=== PATIENT | male | born 1950 | race Caucasian/White ===

== ENCOUNTER → 2022-07-25 11:01 | Outpatient (REF) | payer OTHER, SELFPAY ==
--- NOTE | 2022-07-25 11:08 | CA_ITS ---
Transthoracic Echocardiogram Patient (Last, First, Middle): Jerson Quinn, Gender: Male Date of : 1950 Age: 71 Procedure Date: 07/25/2022 Procedure Type: Transthoracic Echocardiogram Location: [place] Height: 185.42 cm Weight: 101.15 kg BSA: 2.25 m2 Heart Rate: 63 bpm BP: 125 / 70 mmHg Croze Cutter Helper: KAITLYNN Referring MD: Antonette Hewitt [facility] Manager Transport: Zana Cervantes MD Symptoms: TRANSIENT CEREBRAL ISCHEMIA Study Quality: Adequate ECG Rhythm: Sinus Conclusions: - 1. Low normal LV systolic function with LVEF of 50-55% 2. Normal cardiac valvular Dopplers 3. Moderately dilated ascending aorta at 4.5 cm 4. Normal RV systolic pressure 5. No gross pericardial effusion Findings Left Ventricle Normal left ventricular cavity size. The left ventricular systolic function is low normal. The visually estimated ejection fraction is between 50-55%. Spectral Doppler is indicative of an impaired relaxation filling pattern. E/E prime ratio is <8, consistent with normal filling pressures. Evidence suggests grade I (mild) diastolic dysfunction. Right Ventricle Normal right ventricular cavity size and systolic function. Atria Both atria are normal in size. Interatrial shunt cannot be excluded. Aortic Valve Normal aortic valve structure and function. There is no aortic valve stenosis. There is no aortic valve regurgitation. Mitral Valve There is mild anterior and posterior mitral leaflet thickening. There is trace mitral valve regurgitation. There is no mitral valve stenosis. Pulmonic Valve The pulmonic valve is likely normal. Tricuspid Valve Normal tricuspid valve structure. There is trace tricuspid valve regurgitation. The right ventricular systolic pressure is normal. The right ventricular systolic pressure is 24 mmHg. Normal right atrial pressure. There is no evidence of pulmonary hypertension. Great Vessels The pulmonary artery was not well visualized. There is moderate dilatation of the ascending aorta measuring 4.50 cm. Venous The inferior vena cava is normal in size and collapses greater than 50% with inspiration. Pericardium/Pleural There is no evidence of pericardial effusion. Prior Study Comparison No prior study available for comparison. Measurements 2D Linear Measurements IVSd: 1.13 0.6-0.9/0.6-1.0 cm LVIDd: 5.18 3.9-5.3/4.2-5.9 cm LVIDd Index: 2.30 2.4-3.2/2.2-3.1 cm/m2 LVIDs: 3.12 2.0-3.6 cm LVPWd: 1.10 0.7-1.1 cm LA Diam: 3.10 2.7-3.8/3.0-4.0 cm LAIDs Index: 1.38 1.5-2.3 cm/m2 LV Mass: 278.59 67-162/88-224 g LV Mass Index: 123.82 43-95/49-115 g/m2 LVOT Diam: 2.70 3.0+(-)1.3 cm 2D Systolic Function EF 4C: 52.70 >55% EF 2C: 54.70 >55% EF BiP: 52.30 >55% Mitral Valve MV Pk E: 0.59 MV PK A: 0.71 MV Decel Time: 401.00 E/A: 0.80 E'Lateral: 7.18 E'Medial: 6.20 E/E' Med: 9.50 E/E' Lat: 8.20 PHT: 118.00 MVA PHT: 1.86 Decel Mclennan: 1.46 Aortic Valve AoV Pk Navid: 1.09 AoV Mn Navid: 0.82 AoV VTI: 0.24 AoV Pk Grad: 5.00 Aov Mn Grad: 3.00 RYLAN Cont.VTI: 4.10 LVOT LVOT Pk Navid: 0.82 LVOT Mn Navid: 0.61 LVOT VTI: 0.17 LVOT Pk Grad: 3.00 LVOT Mn Grad: 2.00 LVOT Diam: 2.70 LVOT Area: 5.73 Diastolic Function MV Pk E: 0.59 MV Pk A: 0.71 E/A: 0.80 E'Medial: 6.20 E/E' Med: 9.50 E' Laterial: 7.18 E/E' Lat: 8.20 Right Ventricle TAPSE (mm): 26.40 TVS' Navid: 11.90 Tricuspid Valve TR Pk Navid: 2.29 TR Pk Grad: 21.00 RA Press: 3.00 RVSP: 24.00 Great Vessels Aorta Sinus of Valsalva: 4.20 2.0-3.5 cm Ao Asc: 4.50 2.1-3.4 cm Pulmonary Valve PV Pk Navid: 0.75 Peak PV Grad: 2.00 Updated in Other Vendor System with Status of Final Zana Cervantes MD electronically signed on 07/25/2022 4:55:52 PM with status of Final
== END ==
LOC: HO.CARD 11:01
PROVIDERS: PCP Pediatrics; Visit Provider Nurse Practitioner Family
DX: G45.9 Transient cerebral ischemic attack, unspecified (principal)
CPT/HCPCS: 93306